=== PATIENT | male | born 1960 | race Two or more races ===

== ENCOUNTER → 2019-10-12 | Day surgery (SDC) | payer OTHER ==
[~2019-10-12] MED LIST: AMLODIPINE PO; ATACAND HCT 321 EAC1 PO; CRESTOR10 MG PO; ELIQUIS PO; METFORMIN HCL750 MG PO; SOTALOL80 MG PO
== END | disposition home or self-care (01) ==
LOC: ADM 10-11 10:30 → CIR.AMB 07:00
DX: C20 Malignant neoplasm of rectum (principal)
CPT/HCPCS: 36561; C1751

== ENCOUNTER 2020-01-20 12:10 | Outpatient (CLI) | payer OTHER | END 2020-01-20 12:18 | disposition home or self-care (01) | LOC: LAB 12:10 | PROVIDERS: ATTEND Colon & Rectal Surgery | DX: C20 Malignant neoplasm of rectum (principal); Z20.828 Contact with and (suspected) exposure to other viral communicable diseases; Z85.048 Personal history of other malignant neoplasm of rectum, rectosigmoid junction, and anus; K92.1 Melena ==

== ENCOUNTER 2020-01-27 09:12 | Day surgery (SDC) | payer OTHER | END 2020-01-27 14:55 | disposition home or self-care (01) | LOC: AMB-ENDOS 09:12 → ADM 13:45 → AMB-ENDOS 13:45 | PROVIDERS: ATTEND Colon & Rectal Surgery | DX: K62.89 Other specified diseases of anus and rectum (principal) ==

== ENCOUNTER 2020-02-29 07:19 | Day surgery (SDC) | payer OTHER ==
[2020-02-29] MEDS ORDERED: PERCOCET 5-3251 EACH PO (14:51)
[2020-02-29] MEDS ORDERED: LIDOCAINE30 GM TOP (14:52)
== END 2020-02-29 21:00 | disposition home or self-care (01) ==
LOC: CIR.AMB 07:19
PROVIDERS: ATTEND Colon & Rectal Surgery
DX: C20 Malignant neoplasm of rectum (principal); Z20.828 Contact with and (suspected) exposure to other viral communicable diseases; K64.1 Second degree hemorrhoids

== ENCOUNTER 2020-03-15 16:11 | Inpatient (IN) | payer OTHER ==
[~2020-03-15] VITALS: Ht 165.1 cm; Wt 70.3 kg
[~2020-03-15 16:11] MED LIST changes: +LIDOCAINE30 GM TOP; +PERCOCET 5-3251 EACH PO
[2020-03-27] MEDS ORDERED: NORVASC2.5 MG (13:16)
== END 2020-04-01 12:13 | disposition home or self-care (01) | DRG 357 ==
LOC: RECOVERY 03-27 10:00 → O/R 03-27 12:10 → RECOVERY 03-27 21:00 → SURG 03-28 17:10
PROVIDERS: ADMIT Colon & Rectal Surgery; ATTEND Colon & Rectal Surgery
PROC: 07TD4ZZ Resection of Aortic Lymphatic, Percutaneous Endoscopic Approach (ICD-10-PCS; 2020-03-27)
PROC: 0DBP8ZZ Excision of Rectum, Via Natural or Artificial Opening Endoscopic (ICD-10-PCS; 2020-03-27)
PROC: 07TC4ZZ Resection of Pelvis Lymphatic, Percutaneous Endoscopic Approach (ICD-10-PCS; principal; 2020-03-27 21:00)
PROC: 4A12X4Z Monitoring of Cardiac Electrical Activity, External Approach (ICD-10-PCS; 2020-03-28)
DX: C20 Malignant neoplasm of rectum (principal); K92.1 Melena; E11.9 Type 2 diabetes mellitus without complications; I11.9 Hypertensive heart disease without heart failure; E78.00 Pure hypercholesterolemia, unspecified; I48.0 Paroxysmal atrial fibrillation; D64.9 Anemia, unspecified

== ENCOUNTER 2021-05-31 09:05 | Day surgery (SDC) | payer OTHER ==
[~2021-05-31 09:05] MED LIST changes: +NORVASC2.5 MG
== END 2021-05-31 15:50 | disposition home or self-care (01) ==
LOC: AMB-ENDOS 09:05
PROVIDERS: ATTEND Colon & Rectal Surgery
DX: K62.89 Other specified diseases of anus and rectum (principal); Z20.822 Contact with and (suspected) exposure to COVID-19